=== PATIENT | male | born 1940 | race African-American/Black ===

== ENCOUNTER 2018-03-03 05:50 | Inpatient (IN) ==
[2018-03-03] MEDS ORDERED: Bupivacaine/Epi PF 0.25% Inj 20 ML, Bupivacaine Liposo PF 1.3% Inj 20 ML, Sodium Chlor ... P-ARTICULR SCH ×2 (06:30)
[2018-03-03] MEDS ORDERED: Chlorhexidine 4% Topical 120 APPLIC/120 ML Bottle TOPICAL SCH (06:30)
[2018-03-03] MEDS ORDERED: Chlorhexidine Gluconate 2% 1 Pack (2 Cloths) TOPICAL SCH (06:45)
[2018-03-03] MEDS ORDERED: Metoprolol Tartrate 25 MG Tablet PO SCH (06:45)
[2018-03-03] MEDS: Gabapentin 300 MG Capsule PO ONE ×2 (06:47→10:20)
[2018-03-03] MEDS: Celecoxib 200 MG Capsule PO ONE ×2 (06:47→10:19)
[2018-03-03] MEDS ORDERED: Bupivacaine/Dextrose 0.75% Inj 2 ML Ampul ONE (06:48)
[2018-03-03] MEDS: Famotidine PF Inj 20 MG/2 ML Vial IV.PUSH ONE ×2 (06:57→10:20)
[2018-03-03] MEDS ORDERED: SODIUM CHLOR 0.9% IV.SIG SCH (07:00)
[2018-03-03] MEDS ORDERED: Sodium Chlor 0.9% Inj 500 ML IV.SIG SCH (07:00)
[2018-03-03] MEDS: Vancomycin Inj 1,000 MG in Sodium Chlor 0.9% Inj 250 ML IV.SIG SCH ×3 (07:00→21:05)
[2018-03-03] MEDS ORDERED: ceFAZolin 2 GM/NS 100 ML IV; Q8H IV.SIG SCH ×2 (07:00)
[2018-03-03] MEDS ORDERED: TRANEXAMIC ACID IV.SIG SCH (07:00)
[2018-03-03] MEDS: Dexamethasone Inj 20 MG/5 ML Vial IV.PUSH ONE ×2 (07:02→10:19)
--- NOTE | 2018-03-03 09:00 | P.PNOP ---
Subjective Interval history: POD 0 s/p right Anterior ALISON stable in PACU Physical Exam Vital signs: Vital Signs 03/03/18 06:46 Temperature 97.7 F Pulse Rate 65 Respiratory Rate 20 Blood Pressure 124/74 Pulse Oximetry 99 Intake & Output 03/02/18 03/03/18 03/03/18 18:59 06:59 18:59 Intake Total 361.1 / 361.1 Balance 361.1 / 361.1 Weight 74 kg Intake: IV 361.1 / 361.1 Cyklokapron Inj 1,110 MG In NS 111.1 / 111.1 Inj 100 ML @ 200 mls/hr IV.SIG ONCE KEVIN Rx#:[id number] Vancomycin Inj 1,000 MG In NS 250 / 250 Inj 250 ML @ 250 mls/hr IV.SIG ONCE KEVIN Rx#:[id number] Other: Weight On Admission 74 kg Narrative: RLE: dressings clean and dry. intact. NVI Results - Labs Laboratory Results - last 24 hr 03/03/18 06:30 Blood Type B Positive Blood Type Recheck Required Antibody Screen Negative Assessment and Plan - Assessment and Plan 1) Right Anterior ALISON - POD 0 -WBAT -maintain dressing x 6 days and begin daily dressing changes on POD 7 with primapore -maintain surgical mesh -DVT prophylaxis -CM for DC planning --> home with [facility] vs SNF -prescriptions electronically sent to pharmacy -follow up with Alec or RODRÍGUEZ in 2 weeks
[2018-03-03] MEDS ORDERED: Post-op Orders (for Pharmacy) OTHER STA (09:03)
[2018-03-03] MEDS ORDERED: Morphine Inj 4 MG/ML Vial IV.PUSH PRN (09:03)
[2018-03-03] MEDS ORDERED: Bisacodyl 10 MG Supp RECTAL PRN (09:03)
[2018-03-03] MEDS ORDERED: Promethazine 25 MG Supp RECTAL PRN (09:03)
--- NOTE | 2018-03-03 09:09 | P.OP ---
Date of procedure: 03/03/18 Procedure: Right total hip arthroplasty by anterior approach Anesthesia: WAYNE Surgeon: Demetrius Tanner MD Filbert Grower: WINNIE Sewell PA-C The surgical procedure was assisted by my physician optical assistant. My P.A. presence was necessary throughout this case for the manipulation and positioning of the surgical extremity. My P.A. was assisting me throughout the duration of this procedure. The skill set of a physician optical assistant was medically necessary to complete this procedure. During the surgical case the instrument and control technician was working at the back table and the physician optical assistant was directly assisting me. Operation and Findings: PLAN OF ACTIVITY Weight bear as tolerated. IMPLANTS USED DePuy Corail size [16] collared stem with a size [56] Tall Timbers Gription cup, [56 /36] Altrx poly liner, and a 36+5 metal head. DETAILS OF PROCEDURE: This patient has a long history of hip pain. Patient was found to have severe osteoarthritis. The patient had radiographic evidence of joint space narrowing with [id number] arthritis and osteophytes around the acetabulum as well as the femoral head. There was also some cystic changes. The patient failed conservative treatment with pain medications, anti-inflammatories, physical therapy, assistive devices including a cane, as well as therapeutic injection of the hip. Patient's hip arthritis was limiting his ability to ambulate and perform activities of daily living. The patient wished to proceed with surgery and informed consent was obtained. Operative site was marked. I discussed both posterior approach and anterior approach with the patient and decision was made for anterior approach. Patient was brought to OR and placed on OR table. IV sedation and general anesthesia was administered by anesthesiologist. Patient positioned on a Dariela table and was given IV antibiotics. Time-out procedure was performed. The hip and thigh were prepped with alcohol followed by Hibiclens. The thigh was draped in the usual sterile fashion. Clean Air Suite was used for this procedure. The procedure began with a 5-inch incision over the anterolateral thigh. Subcutaneous tissue was dissected with Bovie. The fascia over the tensa fasciae latae was incised. Care was taken to avoid injury to the lateral femoral cutaneous nerve. The tensor muscle was retracted laterally. Sartorius was retracted medially. Retractors were now placed. The reflected head of the rectus is now elevated. A capsulotomy was performed over the anterior head capsule. Sutures were placed to help retract the capsule. At this point the femoral head and neck were identified. With soft tissue protected, oscillating saw was used to make a cut through the femoral neck, the femoral head was now removed. At this point attention was turned to preparation of the acetabulum. The labrum was excised. The acetabulum was sequentially reamed up to size [56]. A Tall Timbers cup was now placed. There were multiple large osteophytes around the rim of the acetabulum. These osteophytes were excised. Fluoroscopy was used to aid in identification of appropriate version. Cup was fully impacted and found to have excellent fit. Hole eliminator was now placed. The liner was now impacted into the cup. At this point the hip was externally rotated. A hook was placed around the proximal femur. The capsule was released off the lateral and medial femur. The hip was now extended and adducted. Retractors were placed around the proximal femur to allow for exposure. A box osteotome was used to remove the lateral cortex of the femoral neck. A broach was used to help lateralize the prosthesis. Canal finder was used to create a path down the canal. Next, the canal was sequentially broached up to size [16]. This was found to be an excellent fit. Calcar planer was placed. A standard head was placed, and the hip was reduced. The hip was found to have excellent stability with good range of motion. The leg lengths were measured under fluoroscopy and found to be equal compared to preoperatively. Trial broach was removed. The Corail stem was opened. Stem was fully impacted into the proximal femur in appropriate version. The femoral head was placed. The hip was again reduced. Fluoroscopy confirmed excellent alignment of prosthesis. The wound was thoroughly irrigated and capsule was closed with #1 Vicryl. The fascia over the tensor fasciae muscle was closed with #1 Vicryl, subcutaneous tissue was closed with 3-0 Vicryl and the skin was closed with leticia and Dermabond skin closure. The capsule layers, muscle, and subcutaneous tissue were injected with a mixture of saline and bupivicaine. Dressings were applied. The patient was transferred to Recovery Room in stable condition.
[2018-03-03] MEDS ORDERED: fentaNYL Citrate Inj 100 MCG/2 ML Ampul ONE (09:41)
[2018-03-03] MEDS ORDERED: *morphine SULFATE 10 MG/ML PERIprocedure ONLY ONE (09:51)
[2018-03-03] MEDS ORDERED: Ketorolac Inj 30 MG/ML (IVP) Vial IV.PUSH SCH (10:00)
[2018-03-03] MEDS ORDERED: *Ondansetron Inj 4 MG/2 ML Vial PERIprocedural Use ONLY ONE (10:46)
[2018-03-03] MEDS ORDERED: Tranexamic Acid Inj 1,000 MG in Sodium Chlor 0.9% Inj 100 ML IV.SIG SCH (11:00)
[2018-03-03] MEDS ORDERED: Lidocaine PF 1% Inj 5 ML Syringe INFILTRATN ONE (12:00)
[2018-03-03] MEDS ORDERED: Glycopyrrolate Inj 1 MG/5 ML Syringe IV.PUSH ONE (12:00)
[2018-03-03] MEDS ORDERED: Neostigmine Inj 5 MG/5 ML Syringe IV.PUSH ONE (12:00)
--- NOTE | 2018-03-03 12:59 | XR ---
EXAM DATE: 03/03/2018 12:26 PM EDT AGE/SEX: 77 years / Male INDICATIONS: Right total hip arthroplasty. CLINICAL DATA: This is the patient's initial encounter. Patient reports that signs and symptoms have been present for 1 day and indicates a pain score of Nonresponsive. MEDICAL/SURGICAL HISTORY: None. None. COMPARISON: No prior exams available for comparison. FINDINGS: Intraoperative images of the right hip show a total hip arthroplasty. Femoral and acetabular componen ts are appropriately positioned without fracture or dislocation CONCLUSION: Appropriate postoperative appearance of the right hip status post total arthroplasty. Electronically signed by: Dimitri Meyer MD 03/03/2018 12:57 PM EDT
[2018-03-03] MEDS: Calcium/Vitamin D 250/125 MG Tablet PO SCH ×2 (13:13→17:45)
[2018-03-03] MEDS: ceFAZolin Inj 2,000 MG in Sodium Chlor 0.9% Inj 80 ML IV.SIG SCH ×2 (16:55→23:15)
[2018-03-03] MEDS: Celecoxib 200 MG Capsule PO SCH (21:03)
[2018-03-03] MEDS: Senna/Docusate Sodium 8.6/50 MG Tablet PO SCH (21:04)
[2018-03-04 05:20] LABS: Hematocrit 25.6 % (39.0-51.0); Hemoglobin 8.7 gm/dL (13.0-17.0)
[2018-03-04] MEDS: ceFAZolin Inj 2,000 MG in Sodium Chlor 0.9% Inj 80 ML IV.SIG SCH (06:14)
--- NOTE | 2018-03-04 07:04 | P.PNOP ---
Subjective Interval history: POD 1 s/p right anterior ALISON Doing well. Pain well controlled. Out of bed with a walker and states that he feels great. Physical Exam Vital signs: Vital Signs 03/03/18 09:36 03/03/18 09:45 03/03/18 10:00 Temperature 97.7 F Pulse Rate 77 73 71 Respiratory Rate 16 16 16 Blood Pressure 135/67 156/78 H 142/82 H Pulse Oximetry 98 100 100 03/03/18 10:15 03/03/18 10:30 03/03/18 10:45 Temperature Pulse Rate 68 69 71 Respiratory Rate 16 16 16 Blood Pressure 152/79 H 151/81 H 139/79 Pulse Oximetry 100 100 100 03/03/18 11:00 03/03/18 11:45 03/03/18 13:12 Temperature 98 F 98 F Pulse Rate 86 75 87 Respiratory Rate 16 18 Blood Pressure 161/84 H 137/79 113/94 H Pulse Oximetry 100 100 95 03/03/18 16:00 03/03/18 17:23 03/03/18 19:08 Temperature 98 F Pulse Rate 81 Respiratory Rate 18 18 18 Blood Pressure 151/79 H Pulse Oximetry 98 03/03/18 20:00 03/04/18 00:00 03/04/18 05:02 Temperature 100 F H 97.8 F Pulse Rate 80 63 Respiratory Rate 17 18 Blood Pressure 153/82 H 103/59 L Pulse Oximetry 93 L 93 L 99 Intake & Output 03/03/18 03/04/18 03/04/18 18:59 06:59 18:59 Intake Total 1921.1 / 1921.1 500 / 500 Output Total 200 / 200 1000 / 1000 Balance 1721.1 / 1721.1 -500 / -500 Intake: IV 1461.1 / 1461.1 450 / 450 Ofirmev Inj 1,000 mg In 100 ml 100 / 100 @ 400 mls/hr IV.SIG Q12H KEVIN Rx #:[id number] LR 1000 mL Inj 1,000 ML @ 30 1000 / 1000 mls/hr IV.SIG .Q24H KEVIN Rx#: [id number] Cyklokapron Inj 1,110 MG In NS 111.1 / 111.1 Inj 100 ML @ 200 mls/hr IV.SIG ONCE KEVIN Rx#:[id number] Vancomycin Inj 1,000 MG In NS 250 / 250 250 / 250 Inj 250 ML @ 250 mls/hr IV.SIG Q12H KEVIN Rx#:[id number] Ancef Inj 2,000 MG In NS Inj 80 100 / 100 100 / 100 ML @ 200 mls/hr IV.SIG Q8H KEVIN Rx#:[id number] Oral 60 / 60 50 / 50 Anesthesia Amount 400 / 400 Output: Estimated Blood Loss 200 / 200 Urine Amount (Catheter) 1000 / 1000 Straight 1000 / 1000 Narrative: RLE: dressings clean and dry. intact. NVI - Urinary Catheter Management Straight Cath placed during this visit: yes, but has since been removed by the nurse Reason for continuing: Not indwelling catheter Insertion date: 03/03/18 Insertion time: 21:18 Removal date: 03/03/18 Removal time: 21:27 Results - Labs CBC & Chem 7: 03/04/18 04:20 Laboratory Results - last 24 hr 18 03/04/18 06:30 04:20 Hgb 8.7 L Hct 25.6 L Antibody Screen Negative - Imaging Impressions Hip X-Ray 03/03/18 00:00 CONCLUSION: Appropriate postoperative appearance of the right hip status post total arthroplasty. Assessment and Plan - Assessment and Plan 1) Right Anterior ALISON - POD 1 -WBAT -maintain dressing x 6 days and begin daily dressing changes on POD 7 with primapore -maintain surgical mesh -DVT prophylaxis -CM for DC planning --> home with [facility] today -prescriptions electronically sent to pharmacy -follow up with Alec or RODRÍGUEZ in 2 weeks
--- NOTE | 2018-03-04 07:07 | P.DCO ---
- Physical Therapy Physical Therapy: Gait training Hip: Total hip, Protocol: Right, Progress to weight bearing Right Lower Extremity Weight Bearing: Weight bearing as tolerated - Nursing Dressing changes: Do not change dressing (x 6 days), Coverderm/Primapore (begin on POd 7) - Certification Need for Home Health services: I have seen patient Bandar Winston JR on 03/04/18. My clinical findings support the need for the requested home health care services because: Need for Home Health Services: Limited mobility due to disease progression Homebound Certification: I certify that my clinical findings support that this patient is homebound because: Homebound Certification: Post-op weakness
--- NOTE | 2018-03-04 07:11 | P.DS ---
Date of admission: 03/03/18 05:50 Primary care physician: No Primary Care Physician Attending physician on discharge: Demetrius Tanner Anticipated date of discharge: 03/04/18 Brief History from admission: Patient has been dealing with right hip osteoarthritis for some time now. He has been seen and evaluated on outpatient basis. He had failed conservative treatment which included anti-inflammatories, activity modification, and steroid injections. Decision was made to proceed forward with an elective right total hip arthroplasty. DS: Diagnosis - Discharge Diagnosis (1) Status post total hip replacement, right Status: Acute Diagnosis: Principal DS: Medications - Discharge Medications Prescriptions: hydrocodone-acetaminophen [[place]] 1 tab PO Q4H PRN #42 tab PRN Reason: Acute Pain DS: Summary Hospital Course: Patient admitted for elective right total hip arthroplasty. Tolerated the procedure well. Was out of bed on postop day 0 with therapy and ambulating his bedroom. He states he had minimal discomfort. By postop day 1, his pain was well controlled, he was hemodynamically stable, he was safe for therapy and fit for discharge home with home health care. He will remain fully weightbearing on the right leg. He will maintain his surgical dressing for 6 days and begin daily dressing changes with a Primapore dressing on postop day 7. He will be sent home with hydrocodone prescription as well as aspirin 81 mg twice daily for DVT prophylaxis for 1 month. He will follow-up in the office with Dr. Tanner or his PA in 2 weeks. - Time Spent with Patient Total time spent providing and/or coordinating discharge services: Less than 30 minutes - Quality: VTE Deep Vein Thrombosis/Pulmonary Embolism Present on Admission: No Exam Vital signs: Vital Signs 03/03/18 09:36 03/03/18 09:45 03/03/18 10:00 Temperature 97.7 F Pulse Rate 77 73 71 Respiratory Rate 16 16 16 Blood Pressure 135/67 156/78 H 142/82 H Pulse Oximetry 98 100 100 03/03/18 10:15 03/03/18 10:30 03/03/18 10:45 Temperature Pulse Rate 68 69 71 Respiratory Rate 16 16 16 Blood Pressure 152/79 H 151/81 H 139/79 Pulse Oximetry 100 100 100 03/03/18 11:00 03/03/18 11:45 03/03/18 13:12 Temperature 98 F 98 F Pulse Rate 86 75 87 Respiratory Rate 16 18 Blood Pressure 161/84 H 137/79 113/94 H Pulse Oximetry 100 100 95 03/03/18 16:00 03/03/18 17:23 03/03/18 19:08 Temperature 98 F Pulse Rate 81 Respiratory Rate 18 18 18 Blood Pressure 151/79 H Pulse Oximetry 98 03/03/18 20:00 03/04/18 00:00 03/04/18 05:02 Temperature 100 F H 97.8 F Pulse Rate 80 63 Respiratory Rate 17 18 Blood Pressure 153/82 H 103/59 L Pulse Oximetry 93 L 93 L 99 Intake & Output 03/03/18 03/04/18 03/04/18 18:59 06:59 18:59 Intake Total 1921.1 / 1921.1 500 / 500 Output Total 200 / 200 1000 / 1000 Balance 1721.1 / 1721.1 -500 / -500 Intake: IV 1461.1 / 1461.1 450 / 450 Ofirmev Inj 1,000 mg In 100 ml 100 / 100 @ 400 mls/hr IV.SIG Q12H KEVIN Rx #:[id number] LR 1000 mL Inj 1,000 ML @ 30 1000 / 1000 mls/hr IV.SIG .Q24H KEVIN Rx#: [id number] Cyklokapron Inj 1,110 MG In NS 111.1 / 111.1 Inj 100 ML @ 200 mls/hr IV.SIG ONCE KEVIN Rx#:[id number] Vancomycin Inj 1,000 MG In NS 250 / 250 250 / 250 Inj 250 ML @ 250 mls/hr IV.SIG Q12H KEVIN Rx#:[id number] Ancef Inj 2,000 MG In NS Inj 80 100 / 100 100 / 100 ML @ 200 mls/hr IV.SIG Q8H KEVIN Rx#:[id number] Oral 60 / 60 50 / 50 Anesthesia Amount 400 / 400 Output: Estimated Blood Loss 200 / 200 Urine Amount (Catheter) 1000 / 1000 Straight 1000 / 1000 Narrative: RLE: dressings clean and dry. intact. NVI Results Procedures completed during hospitalization: Right anterior total hip arthroplasty Labs on day of discharge: Labs from last 24 hours 03/04/18 03/03/18 04:20 06:30 Hgb 8.7 L Hct 25.6 L Antibody Screen Negative - Impressions ITS Impressions Hip X-Ray 03/03/18 00:00 CONCLUSION: Appropriate postoperative appearance of the right hip status post total arthroplasty. Discharge Plan - Discharge Disposition Patient Disposition: Disch W/Home Health Service - Discharge Condition Condition: Good - Discharge Order Discharge Orders: Discharge Order (Routine); Ordered 03/04/18 Ordered By: Kobe Law - Physicians Team Primary Care Provider: Primary Care Ama Bennett Attending Provider: Demetrius Tanner - Rxs /Orders / Referrals /Forms Prescriptions: New hydrocodone-acetaminophen [[place]] 10-325 mg Tablet 1 tab PO Q4H PRN (Reason: Acute Pain) Qty: 42 RF: 0 Continue lisinopril-hydrochlorothiazide 10-12.5 mg Tablet 1 tab PO DAILY Ambulatory Orders / Order Sets / DME: Walker Folding (Routine) Location: Determined by Patient Ordered By: Kobe Law Referrals: Primary Care Ama Bennett [Primary Care Provider] - See Instructions Demetrius Tanner MD [Physician] - See Instructions (2 weeks)
[2018-03-04] MEDS: Celecoxib 200 MG Capsule PO SCH ×2 (10:57→20:48)
[2018-03-04] MEDS: hydroCHLOROthiazide 25 MG Tablet PO SCH (10:57)
[2018-03-04] MEDS: Lisinopril 10 MG Tablet PO SCH (10:57)
[2018-03-04] MEDS: Calcium/Vitamin D 250/125 MG Tablet PO SCH ×3 (10:57→18:23)
[2018-03-04] MEDS: Senna/Docusate Sodium 8.6/50 MG Tablet PO SCH ×2 (10:57→20:49)
[2018-03-04] MEDS: Vancomycin Inj 1,000 MG in Sodium Chlor 0.9% Inj 250 ML IV.SIG SCH (10:58)
--- NOTE | 2018-03-04 14:52 | P.CONIM ---
History of Present Illness Service: Medicine Consult date: 03/04/18 Requesting Physician: Demetrius Tanner Reason for Consult: urinary retention Primary Care Provider: No Primary Care Physician Family Provider: No Primary Care Physician Chief Complaint: urinary retention History of Present Illness: This is a 77 y/o with hx of BPH and severe right OA who p/w elective surgery for Right Anterior ALISON by Dr. Tanner on 03/03/2018. Patient stated he wants to go home. he stated the reason he has not urinated yet is because he is on Saw [place] for his BPH and he stopped that a week before surgery. he denied any pain. patient also stated he is only on lisinopril and norco at home. He asked me to reviewed his medication. No other concerns. - Review of Systems Constitutional: Denies anorexia, Denies body ache(s), Denies chills, Denies daytime sleepiness, Denies excessive sweating, Denies fatigue, Denies fever(s), Denies headache(s), Denies increased appetite, Denies lack of energy, Denies malaise, Denies night sweats, Denies weakness, Denies weight gain, Denies weight loss, Denies other Eyes: Denies blind spots, Denies blurry vision, Denies bulging eyes, Denies change in vision, Denies double vision, Denies discharge, Denies dry eyes, Denies floaters, Denies irritation, Denies itchy eyes, Denies loss of vision, Denies pain, Denies requires corrective lenses, Denies sensitivity to light, Denies other Ears, Nose, Mouth, and Throat: Denies abnormal hearing, Denies bleeding gums, Denies bad breath, Denies change in voice, Denies dental pain, Denies difficulty swallowing, Denies dizziness, Denies dry mouth, Denies ear discharge , Denies ear pain, Denies facial pain, Denies headache(s), Denies hearing loss, Denies hoarseness, Denies lip swelling, Denies nosebleed, Denies mouth lesions, Denies mouth pain, Denies nasal congestion, Denies nasal discharge, Denies nasal obstruction, Denies nasal trauma, Denies neck lump, Denies neck pain, Denies nose pain, Denies pain with swallowing, Denies poor balance, Denies post nasal drip, Denies ringing in the ears, Denies sinus pain, Denies sinus pressure , Denies sore throat, Denies throat swelling, Denies tongue swelling, Denies other Cardiovascular: Denies chest pain, Denies chest pain at rest, Denies chest pain with activity, Denies excessive sweating, Denies fainting, Denies fast heart rate, Denies foot swelling, Denies generalized swelling, Denies irregular heart rhythm, Denies leg pain with activity, Denies leg sores, Denies leg swelling, Denies lightheadedness, Denies radiating jaw, neck or arm pain, Denies rapid, pounding, or irregular heartbeat, Denies shortness of breath, Denies shortness of breath with activity, Denies shortness of breath when lying down, Denies shortness of breath causing sudden awakening, Denies slow heart rate, Denies other Respiratory: Denies change in phlegm color, Denies chest congestion, Denies cough, Denies coughing up blood, Denies excessive phlegm production, Denies pain on inspiration, Denies pain with cough, Denies shortness of breath, Denies shortness of breath with activity, Denies snoring, Denies stridor, Denies wheezing, Denies other Gastrointestinal: Denies abdominal pain, Denies belching, Denies black, tarry stools, Denies bloating, Denies bright, red blood in stools, Denies change in bowel habits, Denies constant urge to pass stool, Denies change in stools, Denies coffee ground vomit, Denies constipation, Denies cramping, Denies difficulty swallowing, Denies excessive passing of gas, Denies feeling full early, Denies heartburn, Denies incontinent of stools, Denies loose stools, Denies nausea, Denies pain with swallowing, Denies vomiting, Denies vomiting blood, Denies other Genitourinary: Reports decreased urination, Reports difficulty urinating, Denies blood in semen, Denies blood in urine, Denies difficulty with ejaculations, Denies erectile dysfunction, Denies genital lesions, Denies genital pain, Denies painful urination, Denies side pain, Denies frequent nighttime urination, Denies painful ejaculations, Denies penile discharge, Denies scrotal swelling, Denies testicle lump, Denies testicle pain, Denies urinary frequency, Denies urinary hesitancy, Denies urinary incontinence, Denies urinary urgency, Denies other Musculoskeletal: Denies abnormal walking, Denies back pain, Denies body aches, Denies decreased muscle mass, Denies deformity, Denies joint pain, Denies joint swelling, Denies limited joint movement, Denies loss of height, Denies muscle cramps, Denies muscle weakness, Denies neck pain, Denies numbness, Denies radiating pain into limb, Denies stiffness, Denies tingling, Denies other Skin/Breast: Denies acne, Denies bleeding lesions, Denies boil, Denies breast swelling, Denies breast skin changes, Denies breast pain, Denies breast lump, Denies change in breast shape, Denies change in hair, Denies change in skin color, Denies changing lesions, Denies dry skin, Denies excessive hair growth, Denies hair loss, Denies itching, Denies lesions, Denies nail changes, Denies new lesions, Denies nipple discharge, Denies non-healing lesions, Denies redness , Denies sensitivity to light, Denies rash, Denies skin pain, Denies skin ulcer , Denies sores, Denies stretch lacy, Denies unusual bruising, Denies wounds, Denies yellowing of the skin, Denies other Neurologic: Denies abnormal hearing, Denies abnormal movements, Denies abnormal speech, Denies abnormal walking, Denies behavioral changes, Denies burning sensations, Denies confusion, Denies dizziness, Denies fainting, Denies frequent falls, Denies headache(s), Denies lack of coordination, Denies localized weakness, Denies loss of vision, Denies memory loss, Denies numbness, Denies other visual disturbances, Denies radiating pain, Denies restless legs, Denies convulsions, Denies seizure-like activity, Denies sensory deficit, Denies tingling, Denies tingling/numbness/burning sensations, Denies tremor(s), Denies unsteadiness, Denies weakness, Denies other Psychiatric: Denies abnormal sleep pattern, Denies anxiety, Denies behavioral changes, Denies change in appetite, Denies change in sex drive, Denies confusion , Denies depression, Denies difficulty concentrating, Denies hearing things others do not hear, Denies hopelessness, Denies irritability, Denies lack of enjoyment, Denies memory loss, Denies mood swings, Denies panic attacks, Denies paranoia, Denies seeing things others do not see, Denies sensing things others do not sense, Denies tactile hallucinations, Denies thoughts of hurting/killing others, Denies thoughts of hurting/killing yourself, Denies other Endocrine: Denies cold intolerance, Denies excessive sweating, Denies flushing, Denies heat intolerance, Denies increased hunger, Denies increased thirst, Denies increased urination, Denies rapid, pounding, or irregular heartbeat, Denies other Hematologic/Lymphatic: Denies easy bleeding, Denies easy bruising, Denies enlarged lymph nodes, Denies other Allergic/Immunologic: Denies GI upset with certain foods, Denies hives, Denies itchy eyes, Denies lip swelling, Denies seasonal runny nose, Denies throat swelling, Denies tongue swelling, Denies wheezing, Denies other PMFSH - History History Provided By: Patient - Medical History Medical History: Medical History (Last Reviewed 03/04/18 @ 10:02 by Christine Leo) Arthritis Bladder leak GERD (gastroesophageal reflux disease) Hard of hearing Hypertension Poor dentition Wears eyeglasses - Tobacco History Second Hand Smoke Exposure: No Tobacco Use In Past 30 Days: No Smoking Status: Former smoker Tobacco Type: Cigarettes - Alcohol History How Often Do You Have a Drink Containing Alcohol: Monthly or less - Substance Use History Substance History: No History of Abuse - Travel History Recent Travel in the [place] Within the Last 8 Weeks: No Recent Travel Out of the Country Within the Last 8 Weeks: No Medications and Allergies Active Medications: Active Medications Hydrocodone Bitart/Acetaminophen ([place]risco 10/325) 1 tab PO Q3H PRN PRN Reason: Pain Scale 8 to 10 Hydrocodone Bitart/Acetaminophen ([place]risco 5/325) 1 tab PO Q3H PRN PRN Reason: PAIN SCALE 3 TO 5 Last Admin: 03/03/18 16:53 Dose: 1 tab Hydrocodone Bitart/Acetaminophen ([place] 7.5/325) 1 tab PO Q3H PRN PRN Reason: Pain Scale 6 to 7 Al Hydroxide/Mg Hydroxide (Milk Of Magnesia Liq) 30 ml PO BID PRN PRN Reason: MILD CONSTIPATION Last Admin: 03/04/18 10:57 Dose: 30 ml Aspirin (Ecotrin) 81 mg PO Q12H [facility] Last Admin: 03/04/18 10:57 Dose: 81 mg Bisacodyl (Dulcolax Supp) 10 mg RECTAL DAILY PRN PRN Reason: SEVERE CONSITIPATION Calcium/Vitamin D (Oscal With D 250/125 Mg) 1 tab PO TID [facility] Last Admin: 03/04/18 10:57 Dose: 1 tab Celecoxib (Celebrex) 200 mg PO BID [facility] Last Admin: 03/04/18 10:57 Dose: 200 mg Chlorhexidine Gluconate (Hibiclens 4% Topical) 1 applicatio TOPICAL ONCE [facility] Stop: 03/07/18 06:29 Last Admin: 03/03/18 06:45 Dose: 1 applicatio Chlorhexidine Gluconate (Chlorhexidine 2% Cloth) 3 pack TOPICAL [facility] Stop: 03/06/18 06:35 Last Admin: 03/03/18 06:00 Dose: 3 pack Diphenhydramine HCl (Benadryl) 25 mg PO Q6H PRN PRN Reason: ITCHING Hydrochlorothiazide (Hydrodiuril) 12.5 mg PO DAILY [facility] Last Admin: 03/04/18 10:57 Dose: 12.5 mg Lactated Ringer's (Lr 1000 Ml Inj) 1,000 mls @ 30 mls/hr IV.SIG .Q24H [facility] Stop: 03/06/18 06:35 Last Admin: 03/04/18 07:56 Dose: Not Given Sodium Chloride (Ns Inj) 500 mls @ 30 mls/hr IV.SIG .Q10H [facility] Stop: 03/06/18 06:35 Acetaminophen (Ofirmev Inj) 1,000 mg in 100 mls @ 400 mls/hr IV.SIG Q12H [facility] Stop: 03/05/18 07:14 Last Infusion: 03/04/18 07:57 Dose: 0 mls/hr Lactated Ringer's (Lr 1000 Ml Inj) 1,000 mls @ 80 mls/hr IV.CONT .[id number] [facility] Last Admin: 03/04/18 10:59 Dose: 80 mls/hr Lactulose (Lactulose Liq) 30 ml PO DAILY PRN PRN Reason: SEVERE CONSITIPATION Lisinopril (Prinivil) 10 mg PO DAILY [facility] Last Admin: 03/04/18 10:57 Dose: 10 mg Metoprolol Tartrate (Lopressor) 25 mg PO [facility] Stop: 03/06/18 06:35 Last Admin: 03/03/18 06:55 Dose: Not Given Miscellaneous (Pill Splitter) 1 each OTHER UNSCH PRN PRN Reason: SEE LABEL COMMENTS Morphine Sulfate (Morphine Inj) 3 mg IV.PUSH Q3H PRN PRN Reason: BREAKTHROUGH PAIN Ondansetron HCl (Zofran Inj) 4 mg IV.PUSH Q6H PRN PRN Reason: NAUSEA Last Admin: 03/03/18 10:48 Dose: 4 mg Ondansetron HCl (Zofran Odt) 4 mg PO Q6H PRN PRN Reason: NAUSEA OR VOMITING Povidone Iodine (Betadine 5% Antisepsis Kit) 1 applicatio EACH [facility] Stop: 03/06/18 06:35 Last Admin: 03/03/18 06:54 Dose: Not Given Promethazine HCl (Phenergan) 25 mg PO Q6H PRN PRN Reason: NAUSEA OR VOMITING Promethazine HCl (Phenergan Supp) 25 mg RECTAL Q6H PRN PRN Reason: NAUSEA OR VOMITING Senna/Docusate Sodium (Chely-Colace) 1 tab PO BID [facility] Last Admin: 03/04/18 10:57 Dose: 1 tab Sennosides (Senokot) 17.2 mg PO BID PRN PRN Reason: Moderate Constipation Sodium Chloride (Ns Flush) 2 ml IV.FLUSH BID [facility] Last Admin: 03/04/18 10:58 Dose: Not Given Sodium Chloride (Ns Flush) 2 ml IV.FLUSH PRN PRN PRN Reason: FLUSH AFTER USING IV ACCESS Tamsulosin HCl (Flomax) 0.4 mg PO DAILY [facility] Allergies Allergy/AdvReac Type Severity Reaction Status Date / Time No Known Allergies Allergy Unverified 03/03/18 06:22 Home Medications Medication Instructions Recorded Confirmed Type lisinopril-hydrochlorothiazide 1 tab PO DAILY 02/26/18 03/03/18 History Exam Vital signs: Vital Signs 03/03/18 16:00 03/03/18 17:23 03/03/18 19:08 Temperature 98 F Pulse Rate 81 Respiratory Rate 18 18 18 Blood Pressure 151/79 H Pulse Oximetry 98 03/03/18 20:00 08/15/18 00:00 03/04/18 05:02 Temperature 100 F H 97.8 F Pulse Rate 80 63 Respiratory Rate 17 18 Blood Pressure 153/82 H 103/59 L Pulse Oximetry 93 L 93 L 99 03/04/18 08:00 03/04/18 12:00 Temperature 97.2 F L 97.6 F Pulse Rate 68 76 Respiratory Rate 18 19 Blood Pressure 122/76 121/71 Pulse Oximetry 98 98 Intake & Output 03/03/18 03/04/18 03/04/18 18:59 06:59 18:59 Intake Total 1921.1 / 1921.1 1500 / 1500 350 / 350 Output Total 200 / 200 1000 / 1000 Balance 1721.1 / 1721.1 500 / 500 350 / 350 Intake: IV 1461.1 / 1461.1 1450 / 1450 100 / 100 LR 1000 mL Inj 1,000 ML @ 80 1000 / 1000 mls/hr IV.CONT .[id number] [facility] Rx# :[id number] Ofirmev Inj 1,000 mg In 100 ml 100 / 100 @ 400 mls/hr IV.SIG Q12H [facility] Rx #:[id number] LR 1000 mL Inj 1,000 ML @ 30 1000 / 1000 mls/hr IV.SIG .Q24H [facility] Rx#: [id number] Cyklokapron Inj 1,110 MG In NS 111.1 / 111.1 Inj 100 ML @ 200 mls/hr IV.SIG ONCE [facility] Rx#:[id number] Vancomycin Inj 1,000 MG In NS 250 / 250 250 / 250 Inj 250 ML @ 250 mls/hr IV.SIG Q12H [facility] Rx#:[id number] Ancef Inj 2,000 MG In NS Inj 80 100 / 100 100 / 100 100 / 100 ML @ 200 mls/hr IV.SIG Q8H [facility] Rx#:[id number] Oral 60 / 60 50 / 50 250 / 250 Anesthesia Amount 400 / 400 Output: Estimated Blood Loss 200 / 200 Urine Amount (Catheter) 1000 / 1000 Straight 1000 / 1000 - Constitutional no acute distress - Routine HEENT Exam Head: Present: normocephalic, atraumatic Eye: Present: EOMI, PERRL ENT: Present: mucous membranes moist - Routine Neck Exam Present: supple, full ROM - Routine Respiratory Exam Present: CTA bilaterally - Routine Cardiovascular Exam Present: RRR, S1, S2 - Routine Abdominal Exam Present: soft, normoactive bowel sounds - Routine Extremities Exam Present: edema - Routine Skin Exam Present: intact - Routine Neurological Exam Present: alert, oriented X3, moving all extremities Results - Labs CBC & Chem 7: 03/04/18 04:20 Labs: Laboratory Results - last 24 hr 03/04/18 04:20 Hgb 8.7 L Hct 25.6 L Assessment and Plan - Plan right severe osteoarthritis -failed conservative management. s/p Right Anterior ALISON POD 3! -per Orth WBAT, maintain dressing x 6 days and begin daily dressing changes on POD 7 with primapore, maintain surgical mesh, follow up with Alec or RODRÍGUEZ in 2 weeks -patient cleared to be d/c with home with home health BPH -patient stated he was taking saw palmetto but stopped it due to surgery. -start flomax. -monitor for UOP. HTN -continue with home medication. anemia -patient has hx of anemia -most likely lost blood from surgery. Discharge Planning: once patient urinates on own he is cleared for discharge.
--- NOTE | 2018-03-05 07:13 | P.PNOP ---
Subjective Interval history: POd 2 s/p right anterior ALISON doing well. no complaints of hip. states could not urinate yesterday Physical Exam Vital signs: Vital Signs 03/04/18 08:00 03/04/18 12:00 03/04/18 16:00 Temperature 97.2 F L 97.6 F 97.6 F Pulse Rate 68 76 96 H Respiratory Rate 18 19 20 Blood Pressure 122/76 121/71 140/74 Pulse Oximetry 98 98 98 03/04/18 20:00 03/05/18 00:00 Temperature 98.3 F 98.9 F Pulse Rate 88 103 H Respiratory Rate 18 20 Blood Pressure 117/60 163/80 H Pulse Oximetry 97 99 Intake & Output 03/04/18 03/05/18 03/05/18 18:59 06:59 18:59 Intake Total 1530 / 1530 1550 / 1550 Output Total 1000 / 1000 1450 / 1450 Balance 530 / 530 100 / 100 Intake: IV 100 / 100 1550 / 1550 LR 1000 mL Inj 1,000 ML @ 80 1000 / 1000 mls/hr IV.CONT .[id number] [facility] Rx# :[id number] Ofirmev Inj 1,000 mg In 100 ml 300 / 300 @ 400 mls/hr IV.SIG Q12H [facility] Rx #:[id number] Ancef Inj 2,000 MG In NS Inj 80 100 / 100 ML @ 200 mls/hr IV.SIG Q8H [facility] Rx#:[id number] Oral 1430 / 1430 Output: Urine 0 / 0 600 / 600 Urine Amount (Catheter) 1000 / 1000 850 / 850 Indwelling Urethral Catheter 850 / 850 Straight 1000 / 1000 Other: # Bowel Movements 0 Narrative: RLE: dressings clean and dry. intact. NVI - Urinary Catheter Management Straight Cath placed during this visit: yes, but has since been removed by the nurse Reason for continuing: Acute urinary retention Insertion date: 03/05/18 Insertion time: 01:00 Removal date: 03/03/18 Removal time: 21:27 Indwelling Urethral Catheter Cath placed during this visit: no Results - Labs CBC & Chem 7: 03/04/18 04:20 - Procedures Right anterior total hip arthroplasty Assessment and Plan - Problem List (1) Status post total hip replacement, right Code(s): Z96.641 - Presence of right artificial hip joint Status: Acute - Assessment and Plan 1) Right Anterior ALISON - POD 2 -WBAT -maintain dressing x 6 days and begin daily dressing changes on POD 7 with primapore -maintain surgical mesh -DVT prophylaxis -CM for DC planning --> home with C today -prescriptions electronically sent to pharmacy -follow up with Alec or RODRÍGUEZ in 2 weeks
[2018-03-05] MEDS: hydroCHLOROthiazide 25 MG Tablet PO SCH (08:50)
[2018-03-05] MEDS: Senna/Docusate Sodium 8.6/50 MG Tablet PO SCH (08:50)
[2018-03-05] MEDS: Lisinopril 10 MG Tablet PO SCH (08:50)
[2018-03-05] MEDS: Calcium/Vitamin D 250/125 MG Tablet PO SCH ×2 (08:51→12:43)
[2018-03-05] MEDS: Celecoxib 200 MG Capsule PO SCH (10:49)
--- NOTE | 2018-03-05 11:17 | P.PNIM ---
Subjective Interval history: patient has no complaints. He had to be straight cath twice last night so short was left it. He is very anxious to go home. Physical Exam Vital signs: Vital Signs 03/04/18 12:00 03/04/18 16:00 03/04/18 20:00 Temperature 97.6 F 97.6 F 98.3 F Pulse Rate 76 96 H 88 Respiratory Rate 19 20 18 Blood Pressure 121/71 140/74 117/60 Pulse Oximetry 98 98 97 03/05/18 00:00 03/05/18 08:00 Temperature 98.9 F 98.8 F Pulse Rate 103 H 83 Respiratory Rate 20 20 Blood Pressure 163/80 H 120/68 Pulse Oximetry 99 99 Intake & Output 03/04/18 03/05/18 03/05/18 18:59 06:59 18:59 Intake Total 1530 / 1530 1550 / 1550 240 / 240 Output Total 1000 / 1000 1450 / 1450 Balance 530 / 530 100 / 100 240 / 240 Intake: IV 100 / 100 1550 / 1550 LR 1000 mL Inj 1,000 ML @ 80 1000 / 1000 mls/hr IV.CONT .[id number] [facility] Rx# :[id number] Ofirmev Inj 1,000 mg In 100 ml 300 / 300 @ 400 mls/hr IV.SIG Q12H [facility] Rx #:[id number] Ancef Inj 2,000 MG In NS Inj 80 100 / 100 ML @ 200 mls/hr IV.SIG Q8H [facility] Rx#:[id number] Oral 1430 / 1430 240 / 240 Output: Urine 0 / 0 600 / 600 Urine Amount (Catheter) 1000 / 1000 850 / 850 Indwelling Urethral Catheter 850 / 850 Straight 1000 / 1000 Other: Date of Last Bowel Movement 03/03/18 # Bowel Movements 0 - Constitutional no acute distress - Routine HEENT Exam Head: Present: normocephalic, atraumatic ENT: Present: mucous membranes moist - Routine Neck Exam Present: supple, full ROM - Routine Respiratory Exam Present: CTA bilaterally - Routine Cardiovascular Exam Present: RRR, S1, S2 - Routine Abdominal Exam Present: soft, normoactive bowel sounds - Urinary Catheter Management Straight Cath placed during this visit: yes, but has since been removed by the nurse Reason for continuing: Acute urinary retention Insertion date: 03/05/18 Insertion time: 01:00 Removal date: 03/03/18 Removal time: 21:27 Indwelling Urethral Catheter Cath placed during this visit: no Results - Labs CBC & Chem 7: 03/04/18 04:20 - Procedures Right anterior total hip arthroplasty Assessment and Plan - Plan right severe osteoarthritis -failed conservative management. s/p Right Anterior ALISON POD 3! -per Orth WBAT, maintain dressing x 6 days and begin daily dressing changes on POD 7 with primapore, maintain surgical mesh, follow up with Alec or RODRÍGUEZ in 2 weeks -patient cleared to be d/c with home with home health BPH -patient stated he was taking saw palmetto but stopped it due to surgery. -on flomax. short cath left in due to urinary retention. -patient told need to f/u with Urologist in 1 week for voiding trial and due to BPH. he stated he understands. -continue with flomax. HTN -continue with home medication. anemia -patient has hx of anemia -most likely lost blood from surgery. Discharge Planning: patient medically cleared for discharge home with home health.
== END 2018-03-05 13:27 | disposition home health service (06) ==
LOC: HSDI 05:50 → N06 12:17
PROVIDERS: ADMIT Orthopaedic Surgery Orthopaedic Trauma; ATTEND Orthopaedic Surgery Orthopaedic Trauma